=== PATIENT | female | born 1970 | race Caucasian/White ===

== ENCOUNTER 2020-12-21 07:14 | Outpatient (CLI) | payer OTHER, SELFPAY ==
--- NOTE | 2020-12-21 07:20 | MM_ITS ---
WS: [id number] SCREENING DIGITAL MAMMOGRAM WITH CAD HISTORY: SCREENING COMPARISON: 04/22/2019 and 01/10/2018 Bilateral CC and MLO views submitted. Computer aided detection analyzed. Breast composition: The breasts are heterogeneously dense, which may obscure small masses. Focal irre gular asymmetry in the upper-outer quadrant of the RIGHT breast with a small amount of architectural distortion. Otherwise no suspicious masses or calcifications within either breast. MM/[place] [id number] IMPRESSION: BI-RADS: 0-Incomplete: Need additional imaging evaluation FOLLOW UP: Need Additional Imaging RIGHT breast: Spot compression views (CC and MLO). True ML. Ultrasound to follo w if abnormality persists.
== END 2020-12-21 07:15 | disposition home or self-care (01) ==
LOC: RADSHAW 07:18
PROVIDERS: PCP Nurse Practitioner; Visit Provider Nurse Practitioner
DX: Z12.31 Encounter for screening mammogram for malignant neoplasm of breast (principal)
CPT/HCPCS: 77067

== ENCOUNTER 2021-06-21 11:18 | Outpatient (CLI) | payer OTHER, SELFPAY ==
[2021-06-21 11:28] VITALS: BMI 29.2
--- NOTE | 2021-06-21 11:30 | ECG_ITS ---
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 Interpretive Statements NAME OF STUDY: TREADMILL STRESS TEST INDICATION: Chest pain, family hx of cad Baseline blood pressure of 160/87 mm Hg, heart rate of 65 beats per minute and oxygen saturation of 98%. EKG showed normal sinus rhythm, normal axis with normal ST-Ts. The patient exercised for 10 minutes 51 seconds on a standard Alex protocol. Patient attained a maximum heart rate of 167 beats per minute(99% of the maximum predicted heart rate) with a blood pressure at the peak exercise of 214/114 mm Hg and oxygen saturation 96%. The EKG at the peak exercise revealed sinus tachycardia with no significant ST-T wave changes. Patient did not have any chest pain or any significant arrhythmis with the exercise. The study was terminated due to exertional fatigue and maximal effort. During the recovery phase, there were no new changes. Blood pressure at the end of the recovery phase was 133/69 mm Hg with a heart rate of 85 beats per minute and oxygen saturation of 95%. T wave inversion in lead II, 3, aVF and V4 to V6 in late recovery. CONCLUSION: 1. Normal EKG response to treadmill exercise. 2. No exercise-induced chest pain or cardiac arrhythmia. 3. Excellent exercise tolerance, attained a maximum of 13.5 METs. Maximum VO2 of 47.3 mL/kg/min. 4. Baseline hypertension with hypertensive response to exercise. Electronically Signed On 06-22-2021 17:31:26 CDT by Mery Guzman M.D. [id number]
[2021-06-21 12:29] VITALS: BP 133/69; PULSE 85
== END 2021-06-21 11:19 | disposition home or self-care (01) ==
LOC: CDL 11:19
PROVIDERS: PCP Nurse Practitioner; Visit Provider Internal Medicine Cardiovascular Disease
DX: R07.9 Chest pain, unspecified (principal); Z82.49 Family history of ischemic heart disease and other diseases of the circulatory system; I10 Essential (primary) hypertension
CPT/HCPCS: 93017

== ENCOUNTER → 2021-09-27 07:55 | Outpatient (BNVA) | payer OTHER, SELFPAY | PROVIDERS: PCP Nurse Practitioner; Visit Provider Surgery | DX: Z12.11 Encounter for screening for malignant neoplasm of colon (principal) | CPT/HCPCS: 99203 ==

== ENCOUNTER 2021-10-11 15:08 | Outpatient (CLI) | payer OTHER, SELFPAY ==
--- NOTE | 2021-10-11 15:20 | MM_ITS ---
WS: [id number] DIAGNOSTIC BILATERAL DIGITAL BREAST TOMOSYNTHESIS MAMMOGRAPHY WITH CAD RIGHT breast ultrasound, limited HISTORY: ABNORMAL MAMMOGRAM from 12-21-2020 COMPARISON: 12/21/2020 and 04/22/2019 TECHNIQUE: Bilateral craniocaudad, mediolateral oblique, and mediolateral views are submitted with to mosynthesis and SM. Spot compression RIGHT MLO and cc. Computer aided detection utilized. Breast composition: The breasts are heterogeneously dense, which may obscure small masses. The asymme try has slightly improved in the upper outer quadrant of the RIGHT breast on the CC projection. There is still some mild asymmetry which will need further evaluation. No abnormality within the LEFT y[address]. No suspicious calcifications. RIGHT breast ultrasound, limited. Well-circumscribed hypoechoic nodule measuring 3 x 4 x 4 mm RIGHT breast at 11:00, 5 cm from the nip ple. This nodule has been present for multiple prior years. The asymmetry seen on the recent mammogra m is not identified as a mass or area of shadowing. Normal fibroglandular tissue. MM/[id number] IMPRESSION: BI-RADS: 2-Benign FOLLOW UP: 1 Year Follow-up
== END 2021-10-11 15:09 | disposition home or self-care (01) ==
LOC: RAD 15:14
PROVIDERS: PCP Nurse Practitioner; Visit Provider Nurse Practitioner
DX: Z12.31 Encounter for screening mammogram for malignant neoplasm of breast (principal)
CPT/HCPCS: 76642; 77062

== ENCOUNTER → 2021-11-01 14:02 | Outpatient (BNVA) | payer OTHER, SELFPAY | PROVIDERS: PCP Nurse Practitioner; Visit Provider Internal Medicine Cardiovascular Disease | DX: I10 Essential (primary) hypertension (principal); Z82.49 Family history of ischemic heart disease and other diseases of the circulatory system; Z98.84 Bariatric surgery status | CPT/HCPCS: 99213; 99214 ==

== ENCOUNTER 2021-12-24 06:03 | Day surgery (SDC) | payer OTHER, SELFPAY ==
[2021-12-23 07:26] VITALS: BMI 28.3
[2021-12-24 06:30] VITALS: BP 142/78; PULSE 60; RESP 18; TEMP 35.9; O2SAT 99
[2021-12-24] MEDS: sodium chloride 0.9% 1,000 ML 30 ML IV (06:33)
--- NOTE | 2021-12-24 06:57 | ANES.PREANE2 ---
Pre-Anesthetic Assessment Height/Weight: Height 1.6 m Weight 72.575 kg Temp Pulse Resp BP Pulse Ox O2 Del Method 96.7 F L 60 18 142/78 99 12/24/21 06:30 12/24/21 06:30 12/24/21 06:30 12/24/21 06:30 12/24/21 06:30 12/24/21 06:30 Preop Diagnosis: screening Operation Date: 12/24/21 07:30 Proposed Procedures p Colonoscopy 99238,Z12.11(Not Applicable) - Guillermo Lorenzana, DO Was Beta Devon taken within 24 hours: N/A Was Clonidine taken within 24 hours: N/A Last intake: Intake Last Liquid Date 12/23/21 Last Liquid Time 21:00 Last Solid Date 12/22/21 Last Solid Time 17:00 Social No alcohol and No tobacco Exam alert, oriented x 3, clear to auscultation bilaterally and regular rate & rhythm Airway Submandibular: within normal limits Cervical ROM: within normal limits Mallampati: Class II Dentition: full Pulmonary Sleep Apnea (CPAP) CV/HEM Hypertension None reported Hepatic None reported GI None reported Metabolic Thyroid Disease (goiter) Musc/skel Lower Back Pain Neuropsych None reported Anesthetic Plan ASA status: 2 Anesthesia: MAC Risk of > 500 ml blood loss (7ml/kg in children): No Medications/Allergies Home Medications Medication Instructions Recorded Confirmed Last Taken Type fluticasone propionate 50 2 spray intranasal DAILY #16 grams 02/10/21 12/24/21 12/23/21 Rx mcg/actuation nasal spray,suspension tramadol 50 mg tablet 50 mg PO DAILY #90 tabs 02/10/21 12/24/21 12/22/21 Rx amlodipine 10 mg tablet 10 mg PO DAILY #90 tabs 04/08/21 12/24/21 12/24/21 Rx chlorthalidone 25 mg tablet 25 mg PO DAILY #30 tabs 06/24/21 12/24/21 12/22/21 Rx potassium chloride 20 mEq 20 meq PO DAILY 11/01/21 12/24/21 12/23/21 History tablet,extended release vitamin B complex (B 1 tab PO DAILY 11/01/21 12/24/21 12/23/21 History Complex-Vitamin B12) Allergies Allergy/AdvReac Type Severity Reaction Status Date / Time No Known Allergies Allergy Verified 12/24/21 06:29 Current Medications Generic Name Dose Route Start Last Admin Trade Name Chelsy PRN Reason Stop Dose Admin Sodium Chloride 1,000 mls @ 30 mls/hr 12/24/21 06:15 12/24/21 06:33 Sodium Chloride 0.9% IV 12/25/21 06:14 30 mls/hr .Q24H CHAD Administration PFSH Anesthesia Medical History Goiter HTN (hypertension) Surgical History H/O gastric bypass H/O: hysterectomy Hx of cholecystectomy Family History Mother Hypertension Grandfather No problems noted. Social History Smoking and tobacco status: never smoked Data Anesthesia Cardiac Studies: No Data to Display
--- NOTE | 2021-12-24 07:00 | P.HP_ITS ---
Providers/Chief Complaint Primary Care Provider: JACQUELINE Darling Chief Complaint: Colon cancer screening History of Present Illness Barbara Merritt is a 51 year old female here for colonoscopy here for colonoscopy Medications/Allergies Home Medications Medication Instructions Recorded Confirmed Last Taken Type fluticasone propionate 50 2 spray intranasal DAILY #16 grams 02/10/21 12/24/21 12/23/21 Rx mcg/actuation nasal spray,suspension tramadol 50 mg tablet 50 mg PO DAILY #90 tabs 02/10/21 12/24/21 12/22/21 Rx amlodipine 10 mg tablet 10 mg PO DAILY #90 tabs 04/08/21 12/24/21 12/24/21 Rx chlorthalidone 25 mg tablet 25 mg PO DAILY #30 tabs 06/24/21 12/24/21 12/22/21 Rx potassium chloride 20 mEq 20 meq PO DAILY 11/01/21 12/24/21 12/23/21 History tablet,extended release vitamin B complex (B 1 tab PO DAILY 11/01/21 12/24/21 12/23/21 History Complex-Vitamin B12) Allergies Allergy/AdvReac Type Severity Reaction Status Date / Time No Known Allergies Allergy Verified 12/24/21 06:29 PFSH Acute PFSH: Medical History Goiter HTN (hypertension) Surgical History H/O gastric bypass H/O: hysterectomy Hx of cholecystectomy Family History Mother Hypertension Grandfather No problems noted. 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
[2021-12-24 07:30] VITALS: BP 119/74; PULSE 66; RESP 18; TEMP 36.1; O2SAT 100
--- NOTE | 2021-12-24 07:36 | ANE.PACU2 ---
Inpatient post-anesthesia follow up: Airway intact: Yes Vital signs: Temperature 97.0 F Pulse Rate 66 Respiratory Rate 18 Blood Pressure 119/74 Pulse Oximetry 100 Oxygen Delivery Me thod Room Air Oxygen Flow Rate Fraction of Inspir ed Oxygen Hydration adequate: Yes Nausea and vomiting: No Pain level: 1 Mental status: Baseline
== END 2021-12-24 08:00 | disposition home or self-care (01) ==
PROVIDERS: PCP Nurse Practitioner; Visit Provider Surgery
PROC: 0DJD8ZZ Inspection of Lower Intestinal Tract, Via Natural or Artificial Opening Endoscopic (ICD-10-PCS; CPT 45378; principal; 2021-12-24 07:30)
DX: Z12.11 Encounter for screening for malignant neoplasm of colon (principal); I10 Essential (primary) hypertension; Z98.84 Bariatric surgery status; G47.30 Sleep apnea, unspecified
CPT/HCPCS: 45378; J2704; J7030

== ENCOUNTER 2022-11-07 11:28 | Outpatient (CLI) | payer OTHER, SELFPAY ==
--- NOTE | 2022-11-07 11:38 | MM_ITS ---
WS: [id number] BILATERAL 3D TOMOSYNTHESIS DIGITAL SCREENING MAMMOGRAPHY WITH CAD CLINICAL INFORMATION: SCREENING HISTORY: Screening mammogram. History of breast reduction COMPARISON: 2021 TECHNIQUE: Bilateral CC and MLO views. FINDINGS: Breast reduction appears new from previous. Scattered fibroglandular densities bilaterally. No suspicious focal mass, asymmetry, calcifications, or architectural distortion. No evidence of malignancy. A few incidental punctate calcifications. MM/[place] [id number] IMPRESSION: BI-RADS: 2-Benign FOLLOW UP: 1 Year Follow-up Recommend return to annual screening mammography.
== END 2022-11-07 11:29 | disposition home or self-care (01) ==
LOC: RAD 11:34 → MOBLMAM 11:36
PROVIDERS: PCP Nurse Practitioner; Visit Provider Nurse Practitioner
DX: Z12.31 Encounter for screening mammogram for malignant neoplasm of breast (principal)
CPT/HCPCS: 77063; 77067

== ENCOUNTER → 2022-12-19 14:41 | Outpatient (BNVA) | payer OTHER, SELFPAY | PROVIDERS: PCP Nurse Practitioner; Visit Provider Internal Medicine Cardiovascular Disease | DX: R07.9 Chest pain, unspecified (principal); I10 Essential (primary) hypertension | CPT/HCPCS: 99214 ==

== ENCOUNTER 2023-12-01 08:16 | Outpatient (CLI) | payer OTHER, SELFPAY ==
--- NOTE | 2023-12-01 08:21 | MM_ITS ---
WS: [id number] BILATERAL SCREENING DIGITAL TOMOSYNTHESIS MAMMOGRAM WITH CAD HISTORY: SCREENING COMPARISON: 11/07/2022, 10/11/2021, 12/21/2020 Bilateral CC and MLO views with tomosynthesis and synthetic mammography submitted. Computer aided det ection analyzed. Breast composition: The breasts are heterogeneously dense, which may obscure small masses. No suspici ous masses, microcalcifications or architectural distortion. Upper outer quadrant RIGHT lymph node. MM/[place] [id number] IMPRESSION: BI-RADS: 2-Benign FOLLOW UP: 1 Year Follow-up
== END 2023-12-01 08:17 | disposition home or self-care (01) ==
LOC: RAD 08:17
PROVIDERS: PCP Nurse Practitioner; Visit Provider Nurse Practitioner
DX: Z12.31 Encounter for screening mammogram for malignant neoplasm of breast (principal); R92.333 Mammographic heterogeneous density, bilateral breasts
CPT/HCPCS: 77063; 77067

== ENCOUNTER → 2023-12-28 10:55 | Outpatient (BNVA) | payer OTHER, SELFPAY | PROVIDERS: PCP Nurse Practitioner; Visit Provider Internal Medicine Cardiovascular Disease | DX: R00.1 Bradycardia, unspecified (principal); R07.9 Chest pain, unspecified | CPT/HCPCS: 93005 ==

== ENCOUNTER 2024-02-16 09:44 | Outpatient (CLI) | payer OTHER, SELFPAY ==
[2024-02-16 10:50] VITALS: BMI 26.9
--- NOTE | 2024-02-16 10:50 | ECG_ITS ---
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 Interpretive Statements Lung unchanged pre/post procedure; Intraprocedure shortess of breath; Symptoms resoled by discharge Exercise/sestamibi/sestamibi stress test report PROCEDURE: At the baseline, the patient's blood pressure was 143/80 with a heart rate of 54. The baseline electrocardiogram showed sinus bradycardia with some nonspecific T wave changes. Poor R wave progression. The patient exercised for 10 minutes and 28 seconds on a standard Alex protocol. Patient attained a maximum heart rate of 160 beats per minute(96% of the maximum predicted heart rate) with a blood pressure at the peak exercise of 125/97 mm Hg. The EKG at the peak exercise revealed [address] depressions in leads II, 3, aVF, V4-V6. Patient did not have any chest pain or any significant cardiac arrhythmias with the exercise Sestamibi was injected 1 minute prior to the peak exercise During the recovery phase, there were no new changes. Blood pressure at the end of the recovery phase was 161/82 mm Hg with a heart rate of 84 per minute. The EKG reverted back to the baseline. CONCLUSION: 1. Abnormal EKG response to treadmill exercise suggesting inferior and anterolateral wall ischemia 2. No exercise-induced chest pain or cardiac arrhythmia 3. Good exercise tolerance, attained a maximum of 13.5 METs 4. Sestamibi/sestamibi perfusion scan results pending; see separate report Electronically Signed On 02-17-2024 13:01:44 CLAM PICKER by Kenia Cool M.D. [id number]
--- NOTE | 2024-02-16 10:51 | NMCV_ITS ---
NM nba perf SPECT r/s* [id number] Barbara Merritt Age: 53 Gender: F : 1970 Exam Date: 02/16/2024 10:51 Ordering Phys: Kenia Cool MD ([email or web address]) Technologist: PRINCE Brennan Exam Location: [facility] Indications: CP STRESS TEST Please see separate stress test report in [facility] for full findings IMAGE PROTOCOL Rest/Stress 1 Exercise Day Radiopharmaceutical Dose (mCi) Administration Site Administered by Rest: Tc-99m 10.7 IV PRINCE Brennan Sestamibi Stress:Tc-99m 32.8 IV Kylie Downey DESK ASSISTANT Sestamibi Rest: 16-Feb-2024 60 Discovery 630 Stress: 16-Feb-2024 15 Discovery 630 Radiopharmaceutical was injected at 90 % maximum heart rate. Images obtained in supine and prone position. SPECT RESULTS Technical Quality: Good Raw Data Analysis: Normal Image Corrections: No attenuation or motion correction applied Summed Stress Score: 0 Summed Rest Score: 5 Summed Difference Score: 0 PERFUSION FINDINGS Attenuation artifacts are noted in the anterolateral and apical lateral regions, with the supine imaging at rest. Fairly uniform tracer uptake were noted with the stress imaging both in the supine and prone positions FUNCTIONAL RESULTS (calculated via Gated SPECT) Stress Image LV EF (%): 73 Stress EDV (mL):78 TID: 0.93 Stress ESV (mL):21 FUNCTIONAL FINDINGS: Segmental wall motion analysis revealing no gross wall motion abnormalities IMPRESSIONS 1. Fairly uniform myocardial tracer uptake with no significant Perfusion normalities. 2. Normal LV ejection fraction of 73%. 3. LV wall motion analysis revealing no gross wall motion abnormalities. 4. Normal LV volume Low probability for coronary ischemia, based on the above findings. No similar previous studies are available for comparison Dr Kenia Cool MD [facility] (Electronically Signed) Final Date: 16 February 2024 15:08 S
[2024-02-16 12:41] VITALS: BP 161/82; PULSE 87
== END 2024-02-16 09:45 | disposition home or self-care (01) ==
LOC: CDL 09:45
PROVIDERS: PCP Nurse Practitioner; Visit Provider Internal Medicine Cardiovascular Disease
DX: Z98.61 Coronary angioplasty status (principal); R06.02 Shortness of breath
CPT/HCPCS: 36415; 78452; 93017; A9500

== ENCOUNTER 2024-03-08 09:49 | Outpatient (CLI) | payer OTHER, SELFPAY ==
--- NOTE | 2024-03-08 10:00 | USCV_ITS ---
Barbara Merritt Age: 53 Gender: F : 1970 Exam Date: 03/08/2024 10:29 Ordering Phys: Kenia Colo MD ([email or web address]) Technologist: Caesar Gonzalez Exam Location: [place] Indication: CHEST PAIN BP: 124 / 80 HR: 57 Rhythm: Sinus Technical Quality: Adequate MEASUREMENTS (Male / Female) Normal Values 2D ECHO LV Diastolic Diameter PLAX 4.2 cm 4.2 - 5.9 / 3.9 - 5.3 cm IVS Diastolic Thickness 1.1 cm 0.6 - 1.0 / 0.6 - 0.9 cm IVS Systolic Thickness 1.4 cm LVPW Diastolic Thickness 1.8 cm 0.6 - 1.0 / 0.6 - 0.9 cm LVPW Systolic Thickness 1.9 cm LVOT Diameter 2.0 cm LV Ejection Fraction 2D Teich 56.9 % LV Ejection Fraction MOD 4C 61.0 % LV Ejection Fraction MOD 2C 74.5 % LV Ejection Fraction 2C AL 76.5 % LA Diameter 3.8 cm RA Systolic Volume 4C AL 26.2 ml RA Systolic Volume 4C MOD 26.7 ml LA Sys Volume AL 58.1 cm cubed LA Sys Volume Index AL 32.3 cm cubed/m squared Aorta at Sinotubular Diameter 2.1 cm IVC Diameter 1.9 cm M-MODE LA Ao Ratio MM 1.5 AV Cusp Separation MM 1.6 cm DOPPLER AV Peak Velocity 149.0 cm/s LVOT Peak Velocity 86.0 cm/s AV Area Cont Eq vti 1.7 cm squared AV Area Cont Eq pk 1.8 cm squared MV Peak Velocity 81.0 cm/s MV Area PHT 5.2 cm squared Mitral E to A Ratio 1.1 TV Peak Velocity 336.3 cm/s TR Peak Velocity 332.0 cm/s TR Peak Gradient 44.1 mmHg TR Mean Velocity 310.0 cm/s TR Mean Gradient 40.2 mmHg TR Velocity Time Integral 107.5 cm PV Peak Velocity 76.7 cm/s RV Ejection Time 0.4 s FINDINGS Left Ventricle Normal left ventricular size and systolic function, EF 65%. Mild left ventricular hypertrophy. Grade II/IV diastolic dysfunction, moderately elevated filling pressures. Right Ventricle The right ventricle is normal in size and function. Right Atrium The right atrium is normal in size. Left Atrium Mildly increased left atrial size. Mitral Valve Trace mitral valve regurgitation. Aortic Valve No gross abnormalities noted Tricuspid Valve Mild tricuspid valve regurgitation. Estimated pulmonary artery peak systolic pressure 35 mmHg Pulmonic Valve No gross abnormalities noted Pericardium Normal pericardium without effusion. Aorta Normal ascending aorta dimension. IVC Inferior vena cava not visualized. CONCLUSIONS Normal left ventricular size and systolic function, EF 65%. Mild left ventricular hypertrophy. Grade II/IV diastolic dysfunction, moderately elevated filling pressures. Mildly increased left atrial size. Trace mitral valve regurgitation. Mild tricuspid valve regurgitation. Estimated pulmonary artery peak systolic pressure 35 mmHg. There is no pericardial effusion. There are no intracardiac masses. No similar previous studies are available for comparison Dr Kenia Cool MD [facility] (Electronically Signed) Final Date: 16 March 2024 16:17 S
== END 2024-03-08 09:50 | disposition home or self-care (01) ==
LOC: RAD 09:50
PROVIDERS: PCP Nurse Practitioner; Visit Provider Internal Medicine Cardiovascular Disease
DX: I50.30 Unspecified diastolic (congestive) heart failure (principal); R07.9 Chest pain, unspecified; I10 Essential (primary) hypertension
CPT/HCPCS: 93306

== ENCOUNTER → 2024-06-25 14:01 | Outpatient (BNVA) | payer OTHER, SELFPAY | PROVIDERS: PCP Nurse Practitioner; Visit Provider Internal Medicine Cardiovascular Disease | DX: R07.9 Chest pain, unspecified (principal); I10 Essential (primary) hypertension; R94.31 Abnormal electrocardiogram [ECG] [EKG]; Z82.49 Family history of ischemic heart disease and other diseases of the circulatory system | CPT/HCPCS: 99214 ==

== ENCOUNTER → 2024-11-21 08:32 | Outpatient (BNVA) | payer OTHER, SELFPAY | PROVIDERS: PCP Nurse Practitioner; Visit Provider Orthopaedic Surgery | DX: M22.8X2 Other disorders of patella, left knee (principal) | CPT/HCPCS: 73560; 73565; 99204 ==

== ENCOUNTER → 2024-11-22 08:14 | Outpatient (BNVA) | payer OTHER, SELFPAY | PROVIDERS: PCP Nurse Practitioner; Visit Provider Orthopaedic Surgery | DX: M70.71 Other bursitis of hip, right hip (principal); M70.72 Other bursitis of hip, left hip | CPT/HCPCS: 73523; 99214 ==

== ENCOUNTER 2024-12-13 07:26 | Outpatient (RCR) | payer OTHER, SELFPAY | END 2024-12-31 23:59 | disposition home or self-care (01) | LOC: SPT 07:26 | PROVIDERS: PCP Nurse Practitioner; Visit Provider Orthopaedic Surgery | DX: M70.71 Other bursitis of hip, right hip (principal); M70.72 Other bursitis of hip, left hip | CPT/HCPCS: 97110; 97162 ==

== ENCOUNTER 2024-12-20 09:19 | Outpatient (CLI) | payer OTHER, SELFPAY ==
--- NOTE | 2024-12-20 09:24 | US_ITS ---
WS: [id number] RIGHT UPPER QUADRANT ULTRASOUND HISTORY: ELEVATED LIVER ENZYMES COMPARISON: None available. Liver: 15.0 cm in length. Normal size liver and echogenicity. No bile duct dilatation or mass. Portal Vein: Normal hepatopetal flow with monophasic waveform. Gallbladder: Prior cholecystectomy. CBD: 0.4 cm Pancreas: Portions of the head and tail are obscured. The body is negative. Right kidney: 11.1 cm in length. Normal size and echogenicity. No hydronephrosis or mass. Aorta and IVC: Unremarkable abdominal aorta and IVC. No ascites. US/US abdomen limited [id number] IMPRESSION: 1. Prior cholecystectomy. 2. Normal liver. 3. No hepatobiliary duct dilatation.
== END 2024-12-20 09:20 ==
LOC: RAD 09:20
PROVIDERS: PCP Nurse Practitioner; Visit Provider Nurse Practitioner
DX: R74.01 Elevation of levels of liver transaminase levels (principal); Z90.49 Acquired absence of other specified parts of digestive tract; M70.61 Trochanteric bursitis, right hip; M70.62 Trochanteric bursitis, left hip
CPT/HCPCS: 76705; 99213

== ENCOUNTER 2025-01-01 05:00 | Outpatient (RCR) | payer OTHER, SELFPAY | END 2025-01-31 23:59 | disposition home or self-care (01) | LOC: SPT 05:00 | PROVIDERS: PCP Nurse Practitioner; Visit Provider Orthopaedic Surgery | DX: M70.62 Trochanteric bursitis, left hip (principal); M70.61 Trochanteric bursitis, right hip | CPT/HCPCS: 97110 ==

== ENCOUNTER → 2025-01-17 08:18 | Outpatient (BNVA) | payer OTHER, SELFPAY | PROVIDERS: PCP Nurse Practitioner; Visit Provider Orthopaedic Surgery | DX: M70.62 Trochanteric bursitis, left hip (principal) | CPT/HCPCS: 20610; 99213; J3301; J3490; J9999 ==

== ENCOUNTER → 2025-01-31 10:25 | Outpatient (BNVA) | payer OTHER, SELFPAY | PROVIDERS: PCP Nurse Practitioner; Visit Provider Orthopaedic Surgery | DX: M70.62 Trochanteric bursitis, left hip (principal) | CPT/HCPCS: 99213 ==